=== PATIENT | female | born 1985 | race Caucasian/White ===

== ENCOUNTER 2018-01-07 10:46 | Emergency (ER) | payer OTHER ==
[~2018-01-07] VITALS: Ht 165.1 cm; Wt 96.2 kg
[2018-01-07 11:36] LABS: HEMATOCRIT 37.1 % (36.0-46.0); HEMOGLOBIN 12.5 G/DL (11.9-15.5); MCHC 33.7 G/DL (30.0-36.0); MCV 89.2 FL (83-99); PLATELET COUNT 230 K/uL (156-360); RBC DIS.WIDTH-CV 12.6 % (11.8-14.6); RBC DIS.WIDTH-SD 41.4 % (39-53); RED BLOOD COUNT 4.16 M/uL (3.80-5.20); WHITE BLOOD COUNT 6.6 K/uL (4.1-10.2)
[2018-01-07 11:51] LABS: ALBUMIN 4.2 g/dL (3.2-4.8); CHLORIDE 109 mEq/L (99-109); POTASSIUM 4.1 mEq/L (3.7-5.4); SODIUM 140 mEq/L (136-147)
[2018-01-07 11:54] LABS: GLUCOSE 90 mg/dL (70-99); TOTAL PROTEIN 6.7 g/dL (6.4-8.3)
[2018-01-07 11:55] LABS: TOTAL BILIRUBIN 0.5 mg/dL (0.0-1.0)
[2018-01-07 11:57] LABS: ALKALINE PHOSPHATASE 48 IU/L (3-129); CREATININE 0.8 mg/dL (0.6-1.3); GFR ESTIMATE (CALCULATED) > 59 mL/min/
[2018-01-07 11:58] LABS: UREA NITROGEN (BUN) 12 mg/dL (9-23)
[2018-01-07 11:59] LABS: AST (GOT) 18 IU/L (2-34); TROP-I INTERPRETATION NEGATIVE; TROPONIN-I < 0.01 ng/mL (0.0-0.30)
[2018-01-07 12:00] LABS: ALT (GPT) 19 IU/L (3-49)
[2018-01-07 14:31] LABS: TROP-I INTERPRETATION NEGATIVE; TROPONIN-I < 0.01 ng/mL (0.0-0.30)
[2018-01-07] MEDS ORDERED: FLEXERIL10 MG PO (14:48)
[2018-01-07] MEDS ORDERED: NAPROSYN500 MG PO (14:48)
[2018-01-07 14:53] VITALS: BP 141/93
== END 2018-01-07 15:39 | disposition home or self-care (01) ==
LOC: EME 10:46
PROVIDERS: Nurse Practitioner Family
DX: R07.89 Other chest pain (principal); R11.0 Nausea; R00.2 Palpitations; M79.1 Myalgia; F32.9 Major depressive disorder, single episode, unspecified
CPT/HCPCS: 71046; 80053; 84484; 85027; 93005; 99281; 99284